=== PATIENT | male | born 1980 | race Two or more races ===

== ENCOUNTER 2016-10-01 21:58 | Emergency (ER) | payer OTHER ==
[2016-10-01 22:10] VITALS: BP 168/110
[2016-10-01] MEDS ORDERED: Bupivacaine 0.5% 10 ML SDV INJECT ONE (22:17)
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
[2016-10-01] MEDS ORDERED: Penicillin V Potassium 500 MG Tab PO ONE (22:50)
[2016-10-01] MEDS ORDERED: Acetaminophen/oxyCODONE 325-5 MG Tab ONE (22:58)
== END 2016-10-01 23:10 | disposition home or self-care (01) ==
LOC: JD.ED 21:58
DX: K04.7 Periapical abscess without sinus (principal); F17.200 Nicotine dependence, unspecified, uncomplicated
CPT/HCPCS: 64400; 99283; A9270

== ENCOUNTER 2017-07-24 21:11 | Emergency (ER) | payer OTHER ==
[2017-07-24 21:34] VITALS: BP 124/89
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
== END 2017-07-24 23:02 | disposition home or self-care (01) ==
LOC: JD.ED 21:11
DX: B34.9 Viral infection, unspecified (principal); F17.210 Nicotine dependence, cigarettes, uncomplicated
CPT/HCPCS: 87804; 99282; 99285